=== PATIENT | female | born 1965 | race Caucasian/White ===

== ENCOUNTER 2019-01-26 19:57 | Observation (INO) | payer BC ==
[2019-01-26 20:32] LABS: Basophils % (A) 1 %; Eosinophils # (A) 0.1 k/uL (0-0.7); Eosinophils % (A) 2 %; HCT 41.2 % (34.0-46.0); HGB 13.7 gm/dL (11.4-16.0); Lymphocytes # (A) 2.4 k/uL (1.0-4.8); Lymphocytes % (A) 35 %; MCH 29.6 pg (25.0-35.0); MCHC 33.3 g/dL (31.0-37.0); MCV 88.8 fL (80.0-100.0); Mean Platelet Volume 6.2; Monocytes # (A) 0.3 k/uL (0-1.0); Monocytes % (A) 4 %; Neutrophils # (A) 3.9 k/uL (1.3-7.7); Neutrophils % (A) 57 %; Platelet Count 375 k/uL (150-450); RBC 4.64 m/uL (3.80-5.40); RDW 12.3 % (11.5-15.5); WBC 6.9 k/uL (3.8-10.6)
[2019-01-26 20:40] LABS: Albumin 4.5 g/dL (3.5-5.0); Calcium 9.7 mg/dL (8.4-10.2); Magnesium 2.1 mg/dL (1.6-2.3); Potassium 4.1 mmol/L (3.5-5.1); Total Bilirubin 0.6 mg/dL (0.2-1.3); Total Protein 7.5 g/dL (6.3-8.2)
[2019-01-26 20:45] LABS: D-Dimer 0.31 mg/L FEU (<0.60); INR 0.9 (<1.2); Partial Thromboplastin Time 23.7 sec (22.0-30.0); Prothrombin Time 9.8 sec (9.0-12.0)
--- NOTE | 2019-01-26 21:08 | XR ---
EXAMINATION TYPE: XR chest 2V DATE OF EXAM: 01/26/2019 COMPARISON: NONE HISTORY: Chest pain TECHNIQUE: Frontal and lateral views of the chest are obtained. FINDINGS: There is no focal air space opacity, pleural effusion, or pneumothorax seen. The cardiac silhouette size is within normal limits. The osseous structures are intact. IMPRESSION: No acute cardiopulmonary process.
--- NOTE | 2019-01-26 21:19 | ED ---
Chest Pain HPI - General Chief Complaint: Chest Pain Stated Complaint: Chest pain Time Seen by Provider: 01/26/19 20:06 Source: patient, family, RN notes reviewed Mode of arrival: ambulatory Limitations: no limitations - History of Present Illness Initial Comments: 53-year-old female presents emergency from chief complaint of chest pain. Patient states started this evening proximal one hour prior arrival. She states it's centralized chest pain, radiates outward. She states that she just does not feel well. Patient states that she feels that she just can't get a deep breath and she has some pressure in her chest. She denies any back pain. Denies any headache she's had slight dizziness. Denies focal weakness. She has missed some nausea no vomiting. Patient states she is to see a zmt operator in the past because of an elevated heart rate but had no acute findings and follow- up with pulmonology at the same time. Patient is on medication she takes is diabetic for Mnire's disease - Related Data Previous Rx's Medication Instructions Recorded Butalbital/Aspirin/Caffeine 1 each PO Q4-6H PRN #20 capsule 03/23/15 [Fiorinal 50-325-40 mg Capsule] Dexamethasone 0.75 mg PO DAILY #12 tablet 03/23/15 Ondansetron Odt [Zofran ODT] 4 mg PO Q8HR PRN #5 tab 03/23/15 Allergies Allergy/AdvReac Type Severity Reaction Status Date / Time codeine Allergy Unknown Verified 01/26/19 20:04 sumatriptan [From Imitrex] Allergy Unknown Verified 01/26/19 20:04 sumatriptan succinate Allergy Unknown Verified 01/26/19 20:04 [From Imitrex] Review of Systems ROS Statement: Those systems with pertinent positive or pertinent negative responses have been documented in the HPI. ROS Other: All systems not noted in ROS Statement are negative. EKG Findings - EKG Comments: EKG Findings:: EKG performed at 20:10 sinus bradycardia rate of 58 LA 150 QRS 86 QT/QTC 4:30/422 Past Medical History Additional Past Medical History / Comment(s): migraines, Menieres History of Any Multi-Drug Resistant Organisms: None Reported Past Surgical History: Cholecystectomy Past Psychological History: No Psychological Hx Reported Smoking Status: Never smoker Past Alcohol Use History: None Reported Past Drug Use History: None Reported General Exam Limitations: no limitations General appearance: alert, in no apparent distress Head exam: Present: atraumatic, normocephalic, normal inspection Eye exam: Present: normal appearance, PERRL, EOMI. Absent: scleral icterus, conjunctival injection, periorbital swelling ENT exam: Present: normal exam, normal oropharynx, mucous membranes moist, TM's normal bilaterally Neck exam: Present: normal inspection, full ROM. Absent: tenderness, meningismus, lymphadenopathy Respiratory exam: Present: normal lung sounds bilaterally. Absent: respiratory distress, wheezes, rales, rhonchi, stridor Cardiovascular Exam: Present: regular rate, normal rhythm, normal heart sounds. Absent: systolic murmur, diastolic murmur, rubs, gallop, clicks GI/Abdominal exam: Present: soft, normal bowel sounds. Absent: distended, tenderness, guarding, rebound, rigid Course Vital Signs 01/26/19 20:00 Temperature 97.7 F Pulse Rate 62 Respiratory 20 Rate Blood Pressure 135/83 O2 Sat by Pulse 99 Oximetry Chest Pain [facility] Patient's labs EKG and chest x-ray are negative this time the symptoms started 1 hour prior arrival. Patient be kept for repeat cardiac enzymes, heparin, cardiology evaluation. Disposition Clinical Impression: Chest pain Disposition: ADMITTED IP TO THIS HOSP Condition: Stable Referrals: Ajay Garrido MD [Primary Care Provider] - 1-2 days
[2019-01-26] MEDS ORDERED: NITROGLYCERIN SL TABS 0.4 MG TAB SUBLINGUAL PRN (21:20)
[2019-01-26] MEDS ORDERED: HEPARIN SODIUM,PORCINE 5,000 UNIT/ML 1 ML VIAL IV ONE (21:20)
[2019-01-26] MEDS ORDERED: HEPARIN SOD,PORK IN 0.45% NACL 25,000 UNIT in 0.45% NACL 1 250ML.BAG IV SCH (21:30)
[2019-01-26 21:49] VITALS: RESP 18
[2019-01-27] MEDS ORDERED: ACETAMINOPHEN TAB 325 MG TAB PO STA (00:22)
[2019-01-27 07:59] LABS: Mean Platelet Volume 6.4; Platelet Count 296 k/uL (150-450)
[2019-01-27 08:09] LABS: Cholesterol 159 mg/dL (<200); HDL Cholesterol 48 mg/dL (40-60); LDL Cholesterol,Calculated 80 mg/dL (0-99); Triglycerides 157 mg/dL (<150)
[2019-01-27] MEDS ORDERED: SODIUM CHLORIDE 0.9% 1,000 ML IV SCH (08:15)
[2019-01-27 08:52] LABS: Calcium 9.3 mg/dL (8.4-10.2); Potassium 4.1 mmol/L (3.5-5.1)
[2019-01-27] MEDS ORDERED: ASPIRIN 81 MG PO SCH (09:00)
[2019-01-27] MEDS ORDERED: ASPIRIN 325 MG TAB PO SCH (09:00)
--- NOTE | 2019-01-27 10:04 | P.CRDCN ---
History of Present Illness History of present illness: HISTORY OF PRESENTING ILLNESS This is a pleasant 53-year-old female past medical history significant for many years disease. She does not follow in the office with a blunger loader f or any reason. We have been asked to see him in consultation for chest pain. She states yesterday after coming home from a swim meet she laid down to take a nap. When she laid down she felt an ache sensation in the right anterior chest wall. Initially lasted for a couple of minutes and subsided on its own. There is no radiation or associated symptoms. However tender so minutes later the chest discomfort returned and persisted for approximately 90 minutes. There was no specific aggravating or alleviating factors. There is no radiation or associated symptoms. After 90 minutes the symptoms did subside on their own. She is currently chest pain-free. She does run regularly and states she ran 3.5 miles last week without symptoms of chest pain or shortness of breath. DIAGNOSTICS EKG reveals sinus mechanism. Chest xray negative for an acute cardiopulmonary process. Laboratory reviewed, CBC unremarkable, d-dimer 0.31, sodium 142, potassium 4.1, creatinine on admission 1.2 9 repeat today 0.95, cardiac enzymes negative 3, LDL 80, and T proBNP 66. Current cardiac medications include Dyazide 37.5/25 mg daily. REVIEW OF SYSTEMS At the time of my exam: CONSTITUTIONAL: Denies fever or chills. CARDIOVASCULAR: Denies chest pain, shortness of breath, orthopnea, PND or palpitations. RESPIRATORY: Denies cough. GASTROINTESTINAL: Denies abdominal pain, diarrhea, constipation, nausea or vomiting. MUSCULOSKELETAL: Denies myalgias. NEUROLOGIC: Denies numbness, tingling or weakness. ENDOCRINE: Denies fatigue, weight change, polydipsia or polyurina. GENITOURINARY: Denies burning, hematuria or urgency with micturation. HEMATOLOGIC: Denies history of anemia or bleeding. PHYSICAL EXAMINATION Blood pressure 130/77 heart rate T9 afebrile and maintaining oxygen saturation on room air. CONSTITUTIONAL: No apparent distress. HEENT: Head is normocephalic. Pupils are equal, round. Sclerae anicteric. Mucous membranes of the mouth are moist. No JVD. No carotid bruit. CHEST EXAMINATION: Lungs are clear to auscultation. No chest wall tenderness is noted on palpation or with deep breathing. HEART EXAMINATION: Regular rate and rhythm. S1, S2 heard. No murmurs, gallops or rub. ABDOMEN: Soft, nontender. Positive bowel sounds. EXTREMITIES: 2+ peripheral pulses, no lower extremity edema and no calf tenderness. NEUROLOGIC EXAMINATION: Patient is awake, alert and oriented x3. ASSESSMENT Chest pain, atypical. An acute coronary event has been ruled out. Acute kidney injury Hypertension Menieres disease PLAN An acute coronary event has been ruled out. Obtain 2D echocardiogram and doppler study to assess cardiac structure and function. Perform stress echocardiogram to assess for stress induced ischemia. If stress test is normal, she is stable for discharge from a cardiac perspec tive. Thank you kindly for this consultation. Nurse Practitioner note has been reviewed, I agree with a documented findings and plan of care. Patient was seen and examined. Past Medical History Past Medical History: Asthma, Chest Pain / Angina, Pneumonia, Respiratory Disorder Additional Past Medical History / Comment(s): migraines, Menieres, broncitis History of Any Multi-Drug Resistant Organisms: None Reported Past Surgical History: Cholecystectomy Additional Past Surgical History / Comment(s): laparoscopy to remove endometriosis x 5 Past Anesthesia/Blood Transfusion Reactions: Postoperative Nausea & Vomiting (PONV) Past Psychological History: No Psychological Hx Reported Smoking Status: Never smoker Past Alcohol Use History: None Reported Past Drug Use History: None Reported - Past Family History Mother Family Medical History: Congestive Heart Failure (CHF), Diabetes Mellitus Sister(s) Family Medical History: Cancer Additional Family Medical History / Comment(s): Large B cell lymphoma Medications and Allergies Home Medications Medication Instructions Recorded Confirmed Type Triamterene-Hctz 37.5-25Mg 1 cap PO DAILY 01/27/19 01/27/19 History [Dyazide 37.5-25 Capsule] Allergies Allergy/AdvReac Type Severity Reaction Status Date / Time codeine Allergy Rash/Hives Verified 01/27/19 09:02 sumatriptan [From Imitrex] Allergy Rash/Hives Verified 01/27/19 09:02 sumatriptan succinate Allergy Rash/Hives Verified 01/27/19 09:02 [From Imitrex] Physical Exam Vitals: Vital Signs Temp Pulse Pulse Resp BP BP Pulse Ox 01/27/19 07:34 97.4 F L 59 L 18 130/77 98 01/27/19 04:33 97.6 F 60 18 115/77 97 01/27/19 00:36 60 18 124/75 98 01/26/19 21:48 64 18 126/72 98 01/26/19 20:00 97.7 F 62 20 135/83 99 Intake and Output 01/26/19 01/27/19 01/27/19 22:59 06:59 14:59 Other: Voiding Method Toilet Toilet Weight 79.379 kg 79.379 kg Results 01/27/19 06:52 01/27/19 06:52 Cardiac Enzymes 01/26/19 01/26/19 01/27/19 Range/Units 20:20 20:20 02:55 AST 42 H (14-36) U/L Troponin I <0.012 <0.012 (0.000-0.034) ng/mL 01/27/19 Range/Units 06:52 AST (14-36) U/L Troponin I <0.012 (0.000-0.034) ng/mL Coagulation 01/26/19 01/27/19 Range/Units 20:20 02:55 PT 9.8 (9.0-12.0) sec APTT 23.7 49.5 H (22.0-30.0) sec Lipids 01/27/19 Range/Units 06:52 Triglycerides 157 H (<150) mg/dL Cholesterol 159 (<200) mg/dL HDL Cholesterol 48 (40-60) mg/dL CBC 01/26/19 01/27/19 Range/Units 20:20 06:52 WBC 6.9 (3.8-10.6) k/uL RBC 4.64 (3.80-5.40) m/uL Hgb 13.7 (11.4-16.0) gm/dL Hct 41.2 (34.0-46.0) % Plt Count 375 296 (150-450) k/uL Comprehensive Metabolic Panel 01/26/19 01/27/19 Range/Units 20:20 06:52 Sodium 143 142 (137-145) mmol/L Potassium 4.1 4.1 (3.5-5.1) mmol/L Chloride 110 H 113 H (98-107) mmol/L Carbon Dioxide 25 21 L (22-30) mmol/L BUN 22 H 17 (7-17) mg/dL Creatinine 1.29 H 0.95 (0.52-1.04) mg/dL Glucose 88 96 (74-99) mg/dL Calcium 9.7 9.3 (8.4-10.2) mg/dL AST 42 H (14-36) U/L ALT 74 H (9-52) U/L Alkaline Phosphatase 78 (38-126) U/L Total Protein 7.5 (6.3-8.2) g/dL Albumin 4.5 (3.5-5.0) g/dL Current Medications Generic Name Dose Route Start Last Admin Trade Name Freq PRN Reason Stop Dose Admin Aspirin 81 mg 01/27/19 09:00 01/27/19 09:46 Aspirin PO 81 mg DAILY DEIRDRE Administration Sodium Chloride 1,000 mls @ 100 mls/hr 01/27/19 08:15 01/27/19 09:44 Saline 0.9% IV 100 mls/hr .Q10H DEIRDRE Administration Nitroglycerin 0.4 mg 01/26/19 21:20 Nitrostat SUBLINGUAL Q5M PRN Chest Pain Intake and Output 01/26/19 01/27/19 01/27/19 22:59 06:59 14:59 Other: Voiding Method Toilet Toilet Weight 79.379 kg 79.379 kg Patient Weight 01/28/19 06:59 Weight 79.379 kg 01/27/19 06:52 01/27/19 06:52
--- NOTE | 2019-01-27 13:01 | ECHOF ---
Referral Reason:cp MEASUREMENTS -------- HEIGHT: 175.3 cm WEIGHT: 79.4 kg BP: 130/77 RVIDd: 2.9 cm (< 3.3) IVSd: 1.2 cm (0.6 - 1.1) LVIDd: 4.0 cm (3.9 - 5.3) LVPWd: 1.1 cm (0.6 - 1.1) IVSs: 1.4 cm LVIDs: 2.7 cm LVPWs: 1.5 cm LA Diam: 3.2 cm (2.7 - 3.8) LAESV Index (A-L): 26.08 ml/m Ao Diam: 2.8 cm (2.0 - 3.7) AV Cusp: 1.9 cm (1.5 - 2.6) MV EXCURSION: 12.039 mm (> 18.000) MV EF SLOPE: 97 mm/s (70 - 150) EPSS: 0.6 cm MV E Beck: 0.74 m/s MV DecT: 237 ms MV A Beck: 0.37 m/s MV E/A Ratio: 2.03 RAP: 5.00 mmHg RVSP: 28.12 mmHg FINDINGS -------- Sinus rhythm. This was a technically adequate study. The left ventricular size is normal. There is borderline concentric left ventricular hypertrophy. Overall left ventricular systolic function is normal with, an EF between 60 - 65 %. The right ventricle is normal in size. Normal LA size by volume 22+/-6 ml/m2. The right atrium is normal in size. Interatrial and interventricular septum intact. The aortic valve is trileaflet and appears structurally normal. Mild mitral regurgitation is present. Mild tricuspid regurgitation present. Right ventricular systolic pressure is normal at < 35 mmHg. Trace/mild (physiologic) pulmonic regurgitation. The aortic root size is normal. Normal inferior vena cava with normal inspiratory collapse consistent with estimated right atrial pre ssure of 5 mmHg. There is no pericardial effusion. CONCLUSIONS -------- 1. Sinus rhythm. 2. This was a technically adequate study. 3. The left ventricular size is normal. 4. There is borderline concentric left ventricular hypertrophy. 5. Overall left ventricular systolic function is normal with, an EF between 60 - 65 %. 6. The right ventricle is normal in size. 7. Normal LA size by volume 22+/-6 ml/m2. 8. The right atrium is normal in size. 9. Interatrial and interventricular septum intact. 10. The aortic valve is trileaflet and appears structurally normal. 11. Mild mitral regurgitation is present. 12. Mild tricuspid regurgitation present. 13. Right ventricular systolic pressure is normal at < 35 mmHg. 14. Trace/mild (physiologic) pulmonic regurgitation. 15. The aortic root size is normal. 16. Normal inferior vena cava with normal inspiratory collapse consistent with estimated right atrial pressure of 5 mmHg. 17. There is no pericardial effusion. COMBAT CONTROL: Elsa Messina RDCS
--- NOTE | 2019-01-27 15:40 | ECHOS ---
STRESS ECHOCARDIOGRAM January 26, 2019 INDICATIONS: Chest pain. MEDICATIONS: BASELINE HEART RATE: 65 BASELINE BLOOD PRESSURE: 135/88 MAXIMUM HEART RATE: 183 MAXIMUM BLOOD PRESSURE: 215/82 85% MPHR: 144 100% MPHR: 169 METS: 12.1 MAXIMUM STAGE REACHED: 4 TOTAL EXERCISE TIME: 10:21 CLINICAL INFORMATION: Stress Data: Heart rate is 65, pressure is 135/88 mmHg. Baseline EKG showed sinus mechanism .The patient exercised on the treadmill according to Jeff protocol for a total of 10 minutes and 21 seconds and achieved 12.1 METS. Max heart rate was 183, which is about 100% of maximum predicted heart rate. Maximum blood pressure was 215/82 mmHg. Clinically the patient did not have any symptoms of chest pain or chest discomfort during the testing or on recovery. The EKG did not show any significant ST or T-wave abnormalities concerning for ischemia. ECHOCARDIOGRAM IMAGES: On echocardiogram images from parasternal long axis view, parasternal short axis view, apical 4 chamber and apical 2 chamber view were obtained as the baseline images, at the peak of the heart rate as well as on recovery and the echocardiogram images showed good augmentation in the left ventricular systolic function without any evidence of wall motion abnormalities concerning for ischemia. CONCLUSION: 1. Excellent exercise tolerance. 2. Normal EKG in response to exercise. 3. Normal echocardiogram in response to exercise. 4. Essentially normal stress echocardiogram. MMODL / IJN: [id number] /
[2019-01-27 15:44] VITALS: BP 110/69; PULSE 60; TEMP 98.1
--- NOTE | 2019-01-27 22:03 | P.HPIM ---
History of Present Illness H&P Date: 01/27/19 Chief Complaint: Chest discomfort Ms. Guy is a 53-year-old female with the past medical history of asthma, migraines, Mnire's disease coming to the hospital with a chief complaint of chest discomfort. Patient states that she went to a swim camp with her daughter and then after coming home she felt very tired and laid down to take a nap. She suddenly felt chest discomfort in the middle of the chest that was there for a few minutes and subsided. No associated nausea, diaphoresis. When she laid down after a few minutes the chest pain return and stayed there for couple of hours. Patient denies having any aggravating or relieving factors. She said that at that time she felt like something was stuck in the middle of the chest. Patient denies having any dysphagia to solids or liquids. No vomiting. No abdominal pain. No diarrhea or constipation, no blood in the stool. Patient is trying to lose weight, no unintentional weight loss. In the ER patient had EKG showing sinus rhythm, chest x-ray negative for any acute cardiopulmonary process, d-dimer 0.31. Troponin less than 0.012. Patient was admitted for further management. Cardiology has evaluated the patient, she got a stress echocardiogram done this afternoon that was showing normal echocardiogram and response to exercise. The patient is chest free now. She has been cleared by cardiology to be discharged home. Review of Systems REVIEW OF SYSTEMS: PSYCH: No anxiety or depression NEURO:No c/o weakness of the extremties, No facial droop, No speech abnormalities. VASCULAR: Peripheral nervous system within the normal limits no edema HEMATOLOGIC: No history of easy bleeding and bruising . No recent infections . RESPIRATORY: No cough, No SOB, No chest discomfort. IMMUNE: No infections INTEGUMENT: no rashes OPHTHALMOLOGIC: No blurry vision and no eye discharge : No dysuria or hematuria DIRECTOR RADIO: No bleeding PV CARDIAC: no orthopnea or paroxysmal nocturnal dyspnea MUSCULOSKELETAL : No Aches or pains in the joints or muscles. GI: No abdominal pain, Nausea or vomiting. No constipation or diarrhea. Past Medical History Past Medical History: Asthma, Chest Pain / Angina, Pneumonia, Respiratory Disorder Additional Past Medical History / Comment(s): migraines, Menieres, broncitis History of Any Multi-Drug Resistant Organisms: None Reported Past Surgical History: Cholecystectomy Additional Past Surgical History / Comment(s): laparoscopy to remove endometriosis x 5 Past Anesthesia/Blood Transfusion Reactions: Postoperative Nausea & Vomiting (PONV) Past Psychological History: No Psychological Hx Reported Smoking Status: Never smoker Past Alcohol Use History: None Reported Past Drug Use History: None Reported - Past Family History Mother Family Medical History: Congestive Heart Failure (CHF), Diabetes Mellitus Sister(s) Family Medical History: Cancer Additional Family Medical History / Comment(s): Large B cell lymphoma Medications and Allergies Home Medications Medication Instructions Recorded Confirmed Type Triamterene-Hctz 37.5-25Mg 1 cap PO DAILY 01/27/19 01/27/19 History [Dyazide 37.5-25 Capsule] Allergies Allergy/AdvReac Type Severity Reaction Status Date / Time codeine Allergy Rash/Hives Verified 01/27/19 09:02 sumatriptan [From Imitrex] Allergy Rash/Hives Verified 01/27/19 09:02 sumatriptan succinate Allergy Rash/Hives Verified 01/27/19 09:02 [From Imitrex] Physical Exam Vitals: Vital Signs Temp Pulse Pulse Resp BP BP Pulse Ox 01/27/19 11:31 97.8 F 59 L 18 118/77 99 01/27/19 07:34 97.4 F L 59 L 18 130/77 98 01/27/19 04:33 97.6 F 60 18 115/77 97 01/27/19 00:36 60 18 124/75 98 01/26/19 21:48 64 18 126/72 98 01/26/19 20:00 97.7 F 62 20 135/83 99 Intake and Output 01/26/19 01/27/19 01/27/19 22:59 06:59 14:59 Other: Voiding Method Toilet Toilet Weight 79.379 kg 79.379 kg GEN. APPEARANCE: alert, in no apparent distress HEENT : No pallor, no icterus. RESPIRATORY EXAM: normal lung sounds bilaterally. No wheeze or crackles. CARDIOVASCULAR EXAM: regular rate, normal rhythm, normal heart sounds. no added sounds. GI/ABDOMINAL EXAM: soft, normal bowel sounds. Non - distended, no tenderness EXTREMITIES EXAM: no pedal edema, joint swelling or calf tenderness NEUROLOGICAL EXAM: alert, oriented X3, no focal deficits PSYCHIATRIC EXAM: normal affect, normal mood SKIN EXAM: no rash Results CBC & Chem 7: 01/27/19 06:52 01/27/19 06:52 Labs: Abnormal Lab Results - Last 24 Hours (Table) 01/26/19 01/27/19 01/27/19 Range/Units 20:20 02:55 06:52 APTT 49.5 H (22.0-30.0) sec Chloride 110 H (98-107) mmol/L Carbon Dioxide (22-30) mmol/L BUN 22 H (7-17) mg/dL Creatinine 1.29 H (0.52-1.04) mg/dL AST 42 H (14-36) U/L ALT 74 H (9-52) U/L Triglycerides 157 H (<150) mg/dL 01/27/19 Range/Units 06:52 APTT (22.0-30.0) sec Chloride 113 H (98-107) mmol/L Carbon Dioxide 21 L (22-30) mmol/L BUN (7-17) mg/dL Creatinine (0.52-1.04) mg/dL AST (14-36) U/L ALT (9-52) U/L Triglycerides (<150) mg/dL Thrombosis Risk Factor Assmnt - Choose All That Apply Any of the Below Risk Factors Present?: Yes Each Factor Represents 1 point: Age 41-60 years, Obesity (BMI >25) Other Risk Factors: No Other congenital or acquired thrombophilia - If yes, enter type in comment: No Thrombosis Risk Factor Assessment Total Risk Factor Score: 2 Thrombosis Risk Factor Assessment Level: Low Risk Assessment and Plan Assessment: ASSESSMENT Atypical chest pain Acute kidney injury Hypertension Mnire's disease Migraine headaches PLAN: Serial troponins and EKGs within normal limits. Patient had a stress echocardiogram done that was within normal limits. Patient was given IV fluids and her creatinine trended down. Patient is being discharged home in a stable condition. She is advised to follow-up with her PCP in 2 to 3 days.
--- NOTE | 2019-01-27 22:04 | P.DS ---
Providers Date of admission: 01/26/19 21:16 Expected date of discharge: 01/27/19 Attending physician: Jeffery Childs MD Consults: 01/26/19 21:20 Consult Physician Urgent Consulting Provider: Bubba Rajput Consult Reason/Comments: chest pain Do you want consulting provider notified?: Yes, Notify in am Primary care physician: [facility] Course: Ms. Guy is a 53-year-old female with the past medical history of asthma, migraines, Mnire's disease coming to the hospital with a chief complaint of chest discomfort. Patient states that she went to a swim camp with her daughter and then after coming home she felt very tired and laid down to take a nap. She suddenly felt chest discomfort in the middle of the chest that was there for a few minutes and subsided. No associated nausea, diaphoresis. When she laid down after a few minutes the chest pain return and stayed there for couple of hours. Patient denies having any aggravating or relieving factors. She said that at that time she felt like something was stuck in the middle of the chest. Patient denies having any dysphagia to solids or liquids. No vomiting. No abdominal pain. No diarrhea or constipation, no blood in the stool. Patient is trying to lose weight, no unintentional weight loss. In the ER patient had EKG showing sinus rhythm, chest x-ray negative for any acute cardiopulmonary process, d-dimer 0.31. Troponin less than 0.012. Patient was admitted for further management. Cardiology has evaluated the patient, she got a stress echocardiogram done this afternoon that was showing normal echocardiogram and response to exercise. The patient is chest free now. She has been cleared by cardiology to be discharged home.Serial troponins and EKGs within normal limits. Patient was given IV fluids and her creatinine trended down. DISCHARGE DIAGNOSIS Atypical chest pain Acute kidney injury Hypertension Mnire's disease Migraine headaches Follow up : Patient is being discharged home in a stable condition. She is advised to follow-up with her PCP in 2 to 3 days. Patient Condition at Discharge: Stable Plan - Discharge Summary Discharge Rx Participant: No New Discharge Prescriptions: Continue Triamterene-Hctz 37.5-25Mg [Dyazide 37.5-25 Capsule] 1 cap PO DAILY Discharge Medication List Triamterene-Hctz 37.5-25Mg [Dyazide 37.5-25 Capsule] 1 cap PO DAILY 01/27/19 [History] Follow up Appointment(s)/Referral(s): Ajay Garrido MD [Primary Care Provider] - 1-2 days Bubba Rajput MD [STAFF PHYSICIAN] - 02/14/19 4:30 pm Patient Instructions/Handouts: Chest Pain (DC) Discharge Disposition: HOME SELF-CARE
== END 2019-01-27 15:55 | disposition home or self-care (01) ==
LOC: EC 19:57 → 1SOBS 21:16
PROVIDERS: ADMIT Internal Medicine; ATTEND Internal Medicine
DX: R07.89 Other chest pain (principal); G43.909 Migraine, unspecified, not intractable, without status migrainosus; H81.09 Meniere's disease, unspecified ear; N17.9 Acute kidney failure, unspecified; I10 Essential (primary) hypertension; J45.909 Unspecified asthma, uncomplicated; Z80.7 Family history of other malignant neoplasms of lymphoid, hematopoietic and related tissues; Z82.49 Family history of ischemic heart disease and other diseases of the circulatory system; Z83.3 Family history of diabetes mellitus; Z79.899 Other long term (current) drug therapy; Z88.5 Allergy status to narcotic agent; Z88.8 Allergy status to other drugs, medicaments and biological substances
CPT/HCPCS: 96366 ×3; 96376; 96365; 99285; 36415; 93005 ×2; 93306; 93351; 85379; 83880; 80061; 80053; 80048; 83690; 83735; 84484 ×2; 85025; 85049; 85610; 85730 ×2; 71046; G0378 ×2; J1644 ×2

== ENCOUNTER 2020-09-19 17:32 | Emergency (ER) | payer BC ==
[2020-09-19 17:43] VITALS: TEMP 98
[2020-09-19] MEDS ORDERED: SODIUM CHLORIDE 0.9% 1,000 ML IV STA (18:09)
[2020-09-19] MEDS ORDERED: ACETAMINOPHEN TAB 500 MG TAB PO STA (18:11)
[2020-09-19 18:48] LABS: Basophils % (A) 1 %; Eosinophils # (A) 0.1 k/uL (0-0.7); Eosinophils % (A) 2 %; HCT 39.9 % (34.0-46.0); Lymphocytes # (A) 1.7 k/uL (1.0-4.8); Lymphocytes % (A) 30 %; MCH 31.2 pg (25.0-35.0); MCHC 35.1 g/dL (31.0-37.0); MCV 89.1 fL (80.0-100.0); Monocytes # (A) 0.3 k/uL (0-1.0); Monocytes % (A) 6 %; Neutrophils # (A) 3.1 k/uL (1.3-7.7); Neutrophils % (A) 57 %; Platelet Count 279 k/uL (150-450); RBC 4.49 m/uL (3.80-5.40); RDW 12.8 % (11.5-15.5); WBC 5.5 k/uL (3.8-10.6)
[2020-09-19 18:58] LABS: Albumin 4.6 g/dL (3.5-5.0); Calcium 9.7 mg/dL (8.4-10.2); Magnesium 2.1 mg/dL (1.6-2.3); Potassium 3.7 mmol/L (3.5-5.1); Total Bilirubin 0.4 mg/dL (0.2-1.3); Total Protein 7.3 g/dL (6.3-8.2)
--- NOTE | 2020-09-19 19:02 | CT ---
EXAMINATION TYPE: CT brain wo con DATE OF EXAM: 09/19/2020 1852 COMPARISON: CT head 03/23/2015 HISTORY: c/o dizziness and headache CT DLP: 1109.4 mGycm Automated exposure control for dose reduction was used. FINDINGS: There is no acute intracranial hemorrhage, mass effect, or midline shift identified. The ventricles and sulci are within normal limits in size. The globes are intact and the visualized sinuses are khris ar. IMPRESSION: No acute intracranial hemorrhage, mass effect, or midline shift is seen.
[2020-09-19 19:03] LABS: INR 0.9 (<1.2); Prothrombin Time 10.2 sec (9.0-12.0)
--- NOTE | 2020-09-19 19:04 | XR ---
EXAMINATION TYPE: XR chest 2V DATE OF EXAM: 09/19/2020 1900 COMPARISON: Chest x-ray 01/26/2019 HISTORY: Chest pain TECHNIQUE: Frontal and lateral views of the chest are obtained. FINDINGS: There is no focal air space opacity, pleural effusion, or pneumothorax seen. The cardiac silhouette size is within normal limits. The osseous structures are intact. IMPRESSION: No acute cardiopulmonary process.
[2020-09-19 19:08] LABS: Partial Thromboplastin Time 21.6 sec (22.0-30.0)
--- NOTE | 2020-09-19 19:15 | ED ---
Dizziness HPI - General Chief Complaint: Dizziness Stated Complaint: Dizziness Time Seen by Provider: 09/19/20 17:40 Source: patient Mode of arrival: EMS Limitations: no limitations - History of Present Illness Initial Comments: 55 year-old female patient with past history significant for Mnire's disease, presents to the emergency department for evaluation of increasing dizziness and left arm weakness. Patient states she has been having symptoms on and off for the last couple of weeks. States she'll have onset of dizziness and it feels like her left arm gets very heavy. She is able to move it. States today symptoms started around 4pm. States that the dizziness she experienced today is much worse than her usual symptoms with Mnire's. States she does take diazide and meclizine as needed. Reports mild headache now. Reports feeling clammy and n auseated after onset of dizziness. She is reporting bilateral lower extremity weakness. Family present states patient is very active generally and these symptoms are very unusual. Patient denies any recent rash, fever, chills, cough, shortness of breath, chest pain, abdominal pain, vomiting, diarrhea, constipation, back pain, numbness, tingling, hematuria, dysuria, urinary urgency, urinary frequency, visual changes, or any other complaints. - Related Data Home Medications Medication Instructions Recorded Confirmed Triamterene-Hctz 37.5-25Mg 1 cap PO DAILY PRN 01/27/19 09/19/20 [Dyazide 37.5-25 Capsule] Previous Rx's Medication Instructions Recorded Meclizine [Antivert] 1 - 2 tab PO BID PRN #120 tablet 09/19/20 Nitrofurantoin Monohyd/M-Cryst 100 mg PO Q12HR #14 cap 09/19/20 [Macrobid] Ondansetron [Zofran ODT] 4 mg PO Q8HR PRN #10 tab 09/19/20 Allergies Allergy/AdvReac Type Severity Reaction Status Date / Time codeine Allergy Rash/Hives Verified 09/19/20 18:43 sumatriptan [From Imitrex] Allergy Rash/Hives Verified 09/19/20 18:43 sumatriptan succinate Allergy Rash/Hives Verified 09/19/20 18:43 [From Imitrex] Review of Systems ROS Statement: Those systems with pertinent positive or pertinent negative responses have been documented in the HPI. ROS Other: All systems not noted in ROS Statement are negative. Past Medical History Past Medical History: Asthma, Chest Pain / Angina, Pneumonia, Respiratory Disorder Additional Past Medical History / Comment(s): migraines, Menieres, broncitis History of Any Multi-Drug Resistant Organisms: None Reported Past Surgical History: Cholecystectomy Additional Past Surgical History / Comment(s): laparoscopy to remove endometriosis x 5 Past Anesthesia/Blood Transfusion Reactions: Postoperative Nausea & Vomiting (PONV) Past Psychological History: No Psychological Hx Reported Smoking Status: Never smoker Past Alcohol Use History: None Reported Past Drug Use History: None Reported - Past Family History Mother Family Medical History: Congestive Heart Failure (CHF), Diabetes Mellitus Sister(s) Family Medical History: Cancer Additional Family Medical History / Comment(s): Large B cell lymphoma General Exam Limitations: no limitations General appearance: alert, in no apparent distress, other (Physical well- developed, well-nourished adult female patient in no acute distress. Vital signs upon presentation are temperature 98.0F, pulse 69, respirations 16, blood pressure 127/78, pulse ox 99% on room air.) Eye exam: Present: normal appearance, PERRL, EOMI. Absent: scleral icterus, conjunctival injection, nystagmus, periorbital swelling ENT exam: Present: normal exam, normal oropharynx, mucous membranes moist Respiratory exam: Present: normal lung sounds bilaterally. Absent: respiratory distress, wheezes, rales, rhonchi, stridor Cardiovascular Exam: Present: regular rate, normal rhythm, normal heart sounds. Absent: systolic murmur, diastolic murmur, rubs, gallop, clicks GI/Abdominal exam: Present: soft, normal bowel sounds. Absent: distended, tenderness, guarding, rebound, rigid Neurological exam: Present: alert, oriented X3, CN II-XII intact Expanded Speech: Present: fluid speech Cranial nerves: EOM's Intact: Normal, Nystagmus: Normal Upper motor neuron: Pronator Drift: Normal Motor strength exam: RUE: 5, LUE: 5, RLE: 5, LLE: 5 Psychiatric exam: Present: normal affect, normal mood Skin exam: Present: warm, dry, intact, normal color. Absent: rash Course Vital Signs 09/19/20 09/19/20 17:39 18:43 Temperature 98.0 F Pulse Rate 59 L 61 Respiratory 16 18 Rate Blood Pressure 127/78 112/69 O2 Sat by Pulse 99 98 Oximetry EKG Findings - EKG Comments: EKG Findings:: EKG obtained at 1831 shows normal sinus rhythm with a ventricular rate of 60, MS interval 140, QRS duration 82, QTc 464, QTC 464. No evidence of ST elevation or depression. Medical Decision Making - Medical Decision Making 55 year-old female patient presents to the emergency department for evaluation of dizziness, nausea, and left arm weakness. Physical exam was unremarkable. She is neurologically intact with no focal deficits. NIH score is 0. Labs reviewed and did reveal mild acute kidney injury also be due to dehydration. There is evidence for nitrite positive urinary tract infection. She is given some IV fluids. EKG was unremarkable. Chest xray and brain CT were negative. I did discuss findings with the patient. I did offer observation admission for further monitoring and evaluation. She declined stating she wanted to try to go home. She is instructed to follow-up with her primary care physician for recheck as soon as possible. Return parameters were discussed in detail. She verbalizes understanding and agrees this plan. Case discussed with my attending Dr. Hatch. - Lab Data Result diagrams: 09/19/20 18:38 09/19/20 18:38 Lab Results 09/19/20 09/19/20 09/19/20 Range/Units 18:38 18:38 18:38 WBC 5.5 (3.8-10.6) k/uL RBC 4.49 (3.80-5.40) m/uL Hgb 14.0 (11.4-16.0) gm/dL Hct 39.9 (34.0-46.0) % MCV 89.1 (80.0-100.0) fL MCH 31.2 (25.0-35.0) pg MCHC 35.1 (31.0-37.0) g/dL RDW 12.8 (11.5-15.5) % Plt Count 279 (150-450) k/uL MPV 7.0 Neutrophils % 57 % Lymphocytes % 30 % Monocytes % 6 % Eosinophils % 2 % Basophils % 1 % Neutrophils # 3.1 (1.3-7.7) k/uL Lymphocytes # 1.7 (1.0-4.8) k/uL Monocytes # 0.3 (0-1.0) k/uL Eosinophils # 0.1 (0-0.7) k/uL Basophils # 0.0 (0-0.2) k/uL PT 10.2 (9.0-12.0) sec INR 0.9 (<1.2) APTT 21.6 L (22.0-30.0) sec Sodium (137-145) mmol/L Potassium (3.5-5.1) mmol/L Chloride (98-107) mmol/L Carbon Dioxide (22-30) mmol/L Anion Gap mmol/L BUN (7-17) mg/dL Creatinine (0.52-1.04) mg/dL Est GFR (CKD-EPI)AfAm (>60 ml/min/1.73 sqM) Est GFR (CKD-EPI)NonAf (>60 ml/min/1.73 sqM) Glucose (74-99) mg/dL Plasma Lactic Acid John (0.7-2.0) mmol/L Calcium (8.4-10.2) mg/dL Magnesium (1.6-2.3) mg/dL Total Bilirubin (0.2-1.3) mg/dL AST (14-36) U/L ALT (4-34) U/L Alkaline Phosphatase (38-126) U/L Troponin I (0.000-0.034) ng/mL Total Protein (6.3-8.2) g/dL Albumin (3.5-5.0) g/dL Urine Color Yellow Urine Appearance Clear (Clear) Urine pH 5.0 (5.0-8.0) Ur Specific [place] 1.022 (1.001-1.035) Urine Protein Negative (Negative) Urine Glucose (UA) Negative (Negative) Urine Ketones Negative (Negative) Urine Blood Negative (Negative) Urine Nitrite Positive H (Negative) Urine Bilirubin Negative (Negative) Urine Urobilinogen <2.0 (<2.0) mg/dL Ur Leukocyte Esterase Trace H (Negative) Urine RBC 1 (0-5) /hpf Urine WBC 6 H (0-5) /hpf Ur Squamous Epith Cells 1 (0-4) /hpf Urine Bacteria Occasional H (None) /hpf Urine Mucus Occasional H (None) /hpf 08/01/21 08/01/21 08/01/21 Range/Units 18:38 18:38 18:38 WBC (3.8-10.6) k/uL RBC (3.80-5.40) m/uL Hgb (11.4-16.0) gm/dL Hct (34.0-46.0) % MCV (80.0-100.0) fL MCH (25.0-35.0) pg MCHC (31.0-37.0) g/dL RDW (11.5-15.5) % Plt Count (150-450) k/uL MPV Neutrophils % % Lymphocytes % % Monocytes % % Eosinophils % % Basophils % % Neutrophils # (1.3-7.7) k/uL Lymphocytes # (1.0-4.8) k/uL Monocytes # (0-1.0) k/uL Eosinophils # (0-0.7) k/uL Basophils # (0-0.2) k/uL PT (9.0-12.0) sec INR (<1.2) APTT (22.0-30.0) sec Sodium 138 (137-145) mmol/L Potassium 3.7 (3.5-5.1) mmol/L Chloride 103 (98-107) mmol/L Carbon Dioxide 23 (22-30) mmol/L Anion Gap 12 mmol/L BUN 24 H (7-17) mg/dL Creatinine 1.06 H (0.52-1.04) mg/dL Est GFR (CKD-EPI)AfAm 70 (>60 ml/min/1.73 sqM) Est GFR (CKD-EPI)NonAf 60 (>60 ml/min/1.73 sqM) Glucose 102 H (74-99) mg/dL Plasma Lactic Acid John 1.1 (0.7-2.0) mmol/L Calcium 9.7 (8.4-10.2) mg/dL Magnesium 2.1 (1.6-2.3) mg/dL Total Bilirubin 0.4 (0.2-1.3) mg/dL AST 53 H (14-36) U/L ALT 63 H (4-34) U/L Alkaline Phosphatase 86 (38-126) U/L Troponin I <0.012 (0.000-0.034) ng/mL Total Protein 7.3 (6.3-8.2) g/dL Albumin 4.6 (3.5-5.0) g/dL Urine Color Urine Appearance (Clear) Urine pH (5.0-8.0) Ur Specific [place] (1.001-1.035) Urine Protein (Negative) Urine Glucose (UA) (Negative) Urine Ketones (Negative) Urine Blood (Negative) Urine Nitrite (Negative) Urine Bilirubin (Negative) Urine Urobilinogen (<2.0) mg/dL Ur Leukocyte Esterase (Negative) Urine RBC (0-5) /hpf Urine WBC (0-5) /hpf Ur Squamous Epith Cells (0-4) /hpf Urine Bacteria (None) /hpf Urine Mucus (None) /hpf - Radiology Data Radiology results: report reviewed, image reviewed CT brain without contrast was obtained. Report was reviewed in its entirety. Impression by Dr. Aguirre shows no acute intracranial hemorrhage, mass effect, or midline shift. Two-view x-ray of the chest is obtained. Report was reviewed in its entirety. Impression by Dr. Aguirre shows no acute cardiopulmonary process. Disposition Clinical Impression: Dizziness, Arm paresthesia, left, Dehydration, UTI (urinary tract infection) Disposition: HOME SELF-CARE Condition: Good Instructions (If sedation given, give patient instructions): Dehydration (ED), Urinary Tract Infection in Women (ED), Paresthesia (ED), Dizziness (ED) Additional Instructions: Increase fluids. Complete antibiotic prescription in full. Take medication as directed. Follow up with Dr. Garrido for recheck in 1-2 days. Follow up with Dr. Roberts for further evaluation as soon as possible. Return to the emergency department for any new, worsening, or concerning symptoms. Prescriptions: Meclizine [Antivert] 1 - 2 tab PO BID PRN #120 tablet PRN Reason: Dizziness Nitrofurantoin Monohyd/M-Cryst [Macrobid] 100 mg PO Q12HR #14 cap Is patient prescribed a controlled substance at d/c from ED?: No Referrals: Ajay Garrido MD [Primary Care Provider] - 1-2 days Danny Roberts MD [STAFF PHYSICIAN] - 1-2 days Time of Disposition: 19:58
[2020-09-19 19:21] LABS: Appearance,Urine Clear (Clear); Bacteria,Urine Occasional /hpf; Bilirubin,Urine Negative (Negative); Blood,Urine Negative (Negative); Color,Urine Yellow; Glucose,Urine (UA) Negative (Negative); Ketones,Urine Negative (Negative); Leukocyte Esterase,Urine Trace (Negative); Mucus,Urine Occasional /hpf; Nitrite,Urine Positive (Negative); Protein,Urine Negative (Negative); RBC,Urine 1 /hpf (0-5); Specific Gravity,Urine 1.022 (1.001-1.035); Squamous Epithelial Cell,Urine 1 /hpf (0-4); Urobilinogen,Urine <2.0 mg/dL (<2.0); WBC,Urine 6 /hpf (0-5)
[2020-09-19] MEDS ORDERED: NITROFURANTOIN MONOHYD/M-CRYST 100 MG CAP PO STA (19:54)
[2020-09-19] MEDS ORDERED: MECLIZINE 12.5 MG TAB PO STA (20:13)
[2020-09-19 20:19] VITALS: BP 120/79; PULSE 67; RESP 16
== END 2020-09-19 20:20 | disposition home or self-care (01) ==
LOC: EC 17:32
DX: E86.0 Dehydration (principal); N39.0 Urinary tract infection, site not specified; R20.2 Paresthesia of skin; J45.909 Unspecified asthma, uncomplicated; Z79.899 Other long term (current) drug therapy
CPT/HCPCS: 36415; 70450; 71046; 80053; 81001; 83605; 83735; 84484; 85025; 85610; 85730; 93005; 96360; 96361; 99285

== ENCOUNTER → 2021-01-04 | Outpatient (CLI) | payer BC ==
[2021-01-04 23:01] LABS: HCT 43.2 % (37.2-46.3); HGB 14.3 g/dL (12.0-15.0); MCHC 33.1 g/dL (32.0-37.0); MCV 93.5 fL (80.0-97.0); Mean Platelet Volume 9.3 fL (9.5-12.2); Platelet Count 367 X 10*3/uL (140-440); RBC 4.62 X 10*6/uL (4.10-5.20); RDW 12.4 % (11.5-14.5); WBC 5.73 X 10*3/uL (4.50-10.00)
[2021-01-05 02:33] LABS: ALT 213 U/L (8-44); AST 94 U/L (13-35); Albumin 4.7 g/dL (3.8-4.9); Albumin/Globulin Ratio 1.94 (1.60-3.17); Alkaline Phosphatase 111 U/L (41-126); BUN/Creat Ratio 16.07 Ratio (12.00-20.00); Blood Urea Nitrogen 13.5 mg/dL (9.0-27.0); Carbon Dioxide 24.9 mmol/L (21.6-31.8); Chloride 104 mmol/L (96-109); Chol/HDL Ratio 4.11 Ratio; Globulin 2.4 g/dL (1.6-3.3); Glucose 86 mg/dL (70-110); LDL Cholesterol,Calculated 98.8 mg/dL (0.0-131.0); Non-African American GFR(CKD) 79.4 (60.0-200.0); Potassium 4.7 mmol/L (3.5-5.5); Sodium 142 mmol/L (135-145); Total Protein 7.1 g/dL (6.2-8.2)
== END | disposition home or self-care (01) ==
LOC: LABWHC1 15:06
PROVIDERS: ATTEND Obstetrics & Gynecology
DX: Z13.220 Encounter for screening for lipoid disorders (principal); Z13.1 Encounter for screening for diabetes mellitus
CPT/HCPCS: 36415; 80053; 80061; 82306; 83036; 84439; 84443; 84479; 85027

== ENCOUNTER → 2021-01-04 | Outpatient (CLI) | payer BC ==
--- NOTE | 2021-01-06 13:43 | MM ---
Reason for exam: screening (asymptomatic). Last mammogram was performed 3 years and 11 months ago. History: Patient is postmenopausal and had first child at age 36. Family history of breast cancer in aunt at age 50. Reductions of both breasts, 2008. Benign excisional biopsy of the right breast. Took hormonal contraceptives for 3 months. Physical Findings: A clinical breast exam by your physician is recommended on an annual basis and results should be correlated with mammographic findings. MG 3D Screening Mammo W/Cad Bilateral CC and MLO view(s) were taken. Prior study comparison: January 31, 2017, bilateral MG 3d screening mammo w/cad. The breast tissue is heterogeneously dense. This may lower the sensitivity of mammography. Areas of asymmetric density are unchanged. No significant changes when compared with prior studies. ASSESSMENT: Benign, BI-RAD 2 RECOMMENDATION: Routine screening mammogram of both breasts in 1 year.
== END | disposition home or self-care (01) ==
LOC: RADMAMWWP 14:44
PROVIDERS: ATTEND Obstetrics & Gynecology
DX: Z12.31 Encounter for screening mammogram for malignant neoplasm of breast (principal); Z78.0 Asymptomatic menopausal state; Z80.3 Family history of malignant neoplasm of breast
CPT/HCPCS: 77063; 77067

== ENCOUNTER → 2021-01-27 | Outpatient (CLI) | payer BC ==
--- NOTE | 2021-01-28 08:48 | BD ---
EXAMINATION TYPE: Axial Bone Density DATE OF EXAM: 01/27/2021 COMPARISON: NONE CLINICAL HISTORY: Height: 5 FT 7 IN Weight: 194 FRAX RISK QUESTIONS: Alcohol (3 or more units per day): NO Family History (Parent hip fracture): NO Glucocorticoids (More than 3mos): NO (Ex: prednisone, prednisolone, methylprednisolone, dexamethasone, and hydrocortisone). History of Fracture in Adulthood: NO Secondary Osteoporosis: 1. Type 1 Diabetes: NO 2. Hyperthyroidism: NO 3. Menopause before 45: NO 4. Malnutrition: NO 5. Chronic liver disease: NO Rheumatoid Arthritis: NO Current Tobacco Use: NO RISK FACTORS HISTORY OF: Surgery to Spine/Hip(right/left)/Wrist (right/left): NO Family History of Osteoporosis: NO Active: SOMEWHAT Diet low in dairy products/other sources of calcium: NO Postmenopausal woman: YES Take estrogen and/or progesterone medications: NO Lost more than 2 inches in height since high school: YES Frequent falls: NO Poor Health: GOOD Hyperparathyroidism: NO Adrenal Insufficiency: NO MEDICATIONS: Additional Medications: IBRAHIM MAKI Additional History: EXAM MEASUREMENTS: Bone mineral densitometry was performed using the Interview Master System. Bone mineral density as measured about the Lumbar spine is: ----- L1-L4(G/cm2): 1.264 T Score Values are as follows: ----- L2: 1.3 ----- L3: 0.6 ----- L4: -0.1 ----- L1-L4: 0.7 BASELINE Bone mineral density about the R hip (g/cm2): 1.007 Bone mineral density about the L hip (g/cm2): 1.033 T Score values are as follows: -----R Neck: -0.2 -----L Neck: 0.0 -----R Total: 0.7 -----L Total: 1.0 BASELINE IMPRESSION: No evidence for osteoporosis or osteopenia. NOTE: T-SCORE=SD OF THE YOUNG ADULT MEAN.
== END | disposition home or self-care (01) ==
LOC: RADBDWWP 15:00
PROVIDERS: ATTEND Obstetrics & Gynecology
DX: Z78.0 Asymptomatic menopausal state (principal)
CPT/HCPCS: 77080

== ENCOUNTER → 2024-08-08 | Outpatient (CLI) | payer BC ==
--- NOTE | 2024-08-08 18:01 | MM ---
Reason for Exam: Screening (asymptomatic). Last mammogram was performed 3 year(s) and 7 month(s) ago. Patient History: Menarche at age 15. First Full-Term at age 36. Late child-bearing (after 30). Postmenopausal. Hormonal Contraceptives for 3 months until age 30. 2007, Bilateral Reduction. Benign Excisional Biopsy on the right side. Maternal aunt had breast cancer, age 50. Risk Values: Gabrielle 5 year model risk: 2.1%. NCI Lifetime model risk: 12.5%. Prior Study Comparison: 03/19/2008 Bilateral Diagnostic Mammogram, [facility]. 01/31/2017 Bilateral Screening Mammogram, [facility]. 01/04/2021 Bilateral Screening Mammogram, [facility]. Tissue Density: There are scattered areas of fibroglandular density. Findings: Analyzed By CAD. Unchanged bilateral areas of asymmetric density. There is no suspicious group of microcalcifications or new suspicious mass in either breast. Overall Assessment: Benign, BI-RAD 2 Management: Screening Mammogram of both breasts in 1 year. Patient should continue monthly self-breast exams. A clinical breast exam by your physician is recommended on an annual basis. This exam should not preclude additional follow-up of suspicious palpable abnormalities. Note on Gabrielle scores and lifetime risk: 1. A Gabrielle score greater than 3% is considered moderate risk. If this is the case, consider specialist referral to assess eligibility for a risk reducing agent. 2. If overall lifetime risk for the development of breast cancer is 20% or higher, the patient may qualify for future screening with alternating mammogram and breast MRI. [facility], , 08/08/2024 5:58 PM. Electronically signed and approved by: Neetu Pedroza M.D. Radiologist
== END | disposition home or self-care (01) ==
LOC: RADMAMWWP 10:05
PROVIDERS: ATTEND Internal Medicine
DX: Z12.31 Encounter for screening mammogram for malignant neoplasm of breast (principal); R92.323 Mammographic fibroglandular density, bilateral breasts; Z78.0 Asymptomatic menopausal state; Z92.0 Personal history of contraception; Z80.3 Family history of malignant neoplasm of breast
CPT/HCPCS: 77063; 77067